=== PATIENT | female | born 1950 | race Caucasian/White ===

== ENCOUNTER 2016-11-27 11:39 | Inpatient (IN) | payer MEDICARE, OTHER ==
[2016-11-27 12:37] LABS: MPV 9.5 fL (7.4-10.4)
[2016-11-27 12:39] LABS: BLOOD UREA NITROGEN 17 MG/DL (7-17); CALC CORRECTED 9.3 MG/DL (8.4-10.2); CALCIUM 8.9 MG/DL (8.4-10.2); CALCULATED OSMOLALITY 272 MOs/Kg (270-290); CHLORIDE 98 mEq/L (98-107); GLUCOSE 240 MG/DL (70-99); SODIUM LEVEL 136 mEq/L (137-146); TOTAL PROTEIN 7.3 G/DL (6.3-8.2)
[2016-11-27 12:42] LABS: CA OXALATE 1+; LEUKOCYTES/URINE NEG (NEGATIVE); NITRITE/URINE NEG (NEGATIVE); URINE OCCULT BLOOD NEG (NEG/TRACE)
[2016-11-27 12:59] LABS: SEG NEUTROPHIL 69 % (45-76)
[2016-11-27] MEDS ORDERED: ONDANSETRON HCL 4 MG/2 ML VIAL IV ONE (13:34)
[2016-11-27] MEDS ORDERED: MORPHINE 4 MG/ML INJECTION IV ONE ×2 (13:34→16:13)
[2016-11-27] MEDS ORDERED: NS 2,000 ML IV ONE (13:34)
--- NOTE | 2016-11-27 14:48 | DIRPT ---
CLINICAL DATA: Low back pain since Sunday. EXAM: LUMBAR SPINE - COMPLETE 4+ VIEW COMPARISON: CT scan from 11/24/2016 and 03/14/2014 FINDINGS: Bones are diffusely demineralized. Mild superior endplate compression deformity at L5 is unchanged since recent CT scan. No worrisome lytic or sclerotic osseous abnormality. SI joints are normal. IMPRESSION: Diffuse bony demineralization with mild L5 superior endplate compression deformity stable since 03/14/2014. Electronically Signed By: Ascencion Thayer M.D. On: 11/27/2016 14:45
[2016-11-27 14:53] LABS: ALLEN'S TEST PASS; BEb -1.2 (+/- 2); TCO2 24.8 MMOL/L (23-27)
[2016-11-27 14:54] LABS: ABG Draw Site Right Radial
[2016-11-27] MEDS ORDERED: DIPHENHYDRAMINE 50 MG/ML VIAL IV ONE (14:57)
--- NOTE | 2016-11-27 15:12 | EDPRACDOC ---
- General Information Chief Complaint: Back Pain Stated Complaint: BACK PAIN/NAUSEA/HIGH BLOOD SUGAR Time Seen by Provider: 11/27/16 13:24 Information Source: Patient Mode Of Arrival: Car Home Medications: Home Medications Cholecalciferol (Vitamin D3) [Vitamin D3] 1,000 unit PO DAILY 01/05/15 Vitamin E 1,000 unit PO DAILY 01/05/15 Ascorbic Acid [Vitamin C] 1,000 mg PO DAILY 11/24/16 Calcium Carbonate [Calcium] 600 mg PO DAILY 11/24/16 Cyclobenzaprine HCl [Flexeril] 10 mg PO TID #21 tab 11/24/16 Metformin HCl 1,000 mg PO BID #60 tab 11/24/16 Nerium 1 tab PO DAILY 11/24/16 Ondansetron HCl [Zofran] 4 mg PO Q6H PRN #20 tab 11/24/16 Ubidecarenone [Co Q-10] 100 mg PO DAILY 11/24/16 Hydrocodone Bit/Acetaminophen [[place] 5-325 Tablet] 1 tab PO Q4H 11/27/16 Allergies/Adverse Reactions: Allergies Allergy/AdvReac Type Severity Reaction Status Date / Time No Known Allergies Allergy Verified 11/24/16 11:46 - History of Present Illness Onset: 1 WEEK HPI: PT PRESENTS WITH NAUSEA, BODY ACHES, BACK PAIN AND HYPERGLYCEMIA. PT STATES SHE WAS SEEN AT THIS FACILITY LAST WEEK AND DX WITH DIABETES. SINCE THAT TIME SHE STATES SHE HAS HAD NAUSEA, LOWER BACK PAIN, AND THAT HER SUGARS ARE REMAINING HIGH. PT WAS SEEN AT URGENT CARE THIS AM AND WAS SENT HERE FOR RE-EVALUATION. Pain Location: Reports: Lumbar Pain Radiates To: Reports: None Pain Caused By: Reports: Spontaneous Circumstances: Reports: Unknown Relevant History: Denies: Abdominal aneurysm, Arthiritis, Cancer, Chronic back pain, Gallbladder disease, Pancreatitis, Pyelonephritis, Urolithiasis, UTI, None , SC, O Currently ?: No Pain Severity: Reports: Moderate Pain Quality: Reports: Sharp, Stabbing Worsened By: Reports: Breathing, Movement, Twisting, Walking Associated Signs and Symptoms: Reports: Nausea ED Past Medical History - History Reviewed Yes Nurses notes reviewed and agree except as marked - Patient Medical History Psychological History: Denies: Depression Surgical History: Reports: Hysterectomy - Family Medical History Reports: Diabetes (FATHER) - Social Medical History Smoking Status: Never smoker EDM Review of Systems - Review of Systems ROS Negative Except as Marked: Yes All systems reviewed and were negative except as marked - Physical Exam Constitutional: Alert (PT APPEARS UNCOMFORTABLE) Oriented to: Time, Person, Place Last recorded Vital Signs: Last Vital Signs Temp 98.1 F 11/27/16 13:39 Pulse 91 11/27/16 14:59 Resp 18 11/27/16 14:59 BP 115/59 L 11/27/16 14:59 Pulse Ox 91 11/27/16 14:59 Oxygen Pulse Oxygen Saturation 91 O2 Device Nasal Cannula Oxygen Flow Rate 2 Fraction of Inspired Oxygen ( FIO2) - HEENT Head: Normal ( normocephalic) Eye Exam: Normal (PERRL, EOMI, Sclera white) Oropharynx: Normal (Pharynx:Moist without exudate,Gums-no swelling) Tympanic Membrane: Normal Nose: No Symptoms Reported (septum midline) Neck: Normal (FROM, trachea at midline) - Respiratory/Cardiovascular Respiratory: Normal - CTA (BBS clear to auscultation without adventitious sounds ) Cardiovascular: Normal (RRR without murmur, gallop or rub) - GI Auscultation: Normal (NABS) Palpation: Normal (Soft,No rebound or guarding, non distended) Tenderness: Non tender De Leon's Sign: Negative Rectal Exam: Deferred - Musculoskeletal Back: Normal (Non-Tender) Extremities: Normal (Normal tone, Pulses 2+ No cyanosis or edema, FROM) - Integumentary Skin: Normal, Warm, Dry Lymphatics: Normal (no adenopathy) - Neurologic Memory Impaired: Normal Motor Function: Normal (Normal tone, Pulses 2+ No cyanosis or edema, FROM) Cranial Nerve: Normal (CN II-X11 intact sensation, strength 5/5) Cerebellar: Normal Mood Description: Normal Perception: Normal ED Back Exam - Neurologic Motor Deficit: None Reflexes: Normal - Musculoskeletal Cervical: Normal Thoracic: Normal Lumbar: Tender, CVA Tenderness Midline: Normal Paraspinous: Tender Straight Leg Raise: Negative Pelvis: Normal - Differential Diagnosis Other - Results 11/27/16 12:17 11/27/16 12:17 WBC 5.0 xk/uL (3.8-10.8) 11/27/16 12:17 RBC 4.54 xM/uL (4.20-5.40) 11/27/16 12:17 Hgb 14.1 g/dL (12.0-16.0) 11/27/16 12:17 Hct 41.7 % (36-47) 11/27/16 12:17 MCV 92 fL (81-99) 11/27/16 12:17 MCH 31.0 pg (27-32) 11/27/16 12:17 MCHC 33.8 g/dl (33-36) 11/27/16 12:17 RDW 12.8 % (11.5-14.5) 11/27/16 12:17 Plt Count 185 xk/uL (130-400) 11/27/16 12:17 MPV 9.5 fL (7.4-10.4) 11/27/16 12:17 Neut % (Auto) Cancelled 11/27/16 12:17 Lymph % (Auto) Cancelled 11/27/16 12:17 [place] % (Auto) Cancelled 11/27/16 12:17 Eos % (Auto) Cancelled 11/27/16 12:17 Baso % (Auto) Cancelled 11/27/16 12:17 Absolute Neuts (auto) Cancelled 11/27/16 12:17 Absolute Lymphs (auto) Cancelled 11/27/16 12:17 Seg Neuts % (Manual) 69 % (45-76) 11/27/16 12:17 Band Neutrophils % 6 % (0-5) H 11/27/16 12:17 Lymphocytes % (Manual) 14 % (17-44) L 11/27/16 12:17 Monocytes % (Manual) 7 % (0-10) 11/27/16 12:17 Eosinophils % (Manual) 4 % (0-5) 11/27/16 12:17 Absolute Neutrophils 3.75 xk/uL (1.7-8.2) 11/27/16 12:17 Absolute Lymphocytes 0.70 xk/uL (0.65-4.75) 11/27/16 12:17 Atypical Lymphocytes Occ 11/27/16 12:17 Platelet Estimate Norm (NORMAL) 11/27/16 12:17 RBC Morphology Norm 11/27/16 12:17 Puncture Site Right radial 11/27/16 14:50 pH 7.390 pH UNITS (7.35-7.45) 01/02/17 14:50 pCO2 39.0 mmHg (35-45) 11/27/16 14:50 pO2 54.0 mmHg (80-100) L 11/27/16 14:50 HCO3 23.6 MMOL/L (22-26) 11/27/16 14:50 Total CO2 24.8 MMOL/L (23-27) 11/27/16 14:50 Base Excess -1.2 (+/- 2) 11/27/16 14:50 FiO2 % .21 11/27/16 14:50 Specimen Drawn By Sy 11/27/16 14:50 Sodium 136 mEq/L (137-146) L 11/27/16 12:17 Potassium 4.0 mEq/L (3.5-5.1) 11/27/16 12:17 Chloride 98 mEq/L (98-107) 11/27/16 12:17 Carbon Dioxide 22 mMOL/L (22-33) 11/27/16 12:17 Anion Gap 20 mEq/L (8-16) H 11/27/16 12:17 BUN 17 MG/DL (7-17) 11/27/16 12:17 Creatinine 0.70 MG/DL (0.52-1.04) 11/27/16 12:17 Estimated GFR (MDRD) > 60 mL/min (>=60) 11/27/16 12:17 Glucose 240 MG/DL (70-99) H 11/27/16 12:17 Calculated Osmolality 272 MOs/Kg (270-290) 11/27/16 12:17 Calcium 8.9 MG/DL (8.4-10.2) 11/27/16 12:17 Corrected Calcium 9.3 MG/DL (8.4-10.2) 11/27/16 12:17 Total Bilirubin 0.7 MG/DL (0.2-1.3) 11/27/16 12:17 AST 56 IU/L (14-36) H 11/27/16 12:17 ALT 94 IU/L (9-52) H 11/27/16 12:17 Alkaline Phosphatase 107 IU/L (55-165) 11/27/16 12:17 Total Protein 7.3 G/DL (6.3-8.2) 11/27/16 12:17 Albumin 3.6 G/DL (3.5-5.0) 11/27/16 12:17 Urine Color Chari 11/27/16 12:19 Urine Clarity Sl cldy 11/27/16 12:19 Urine pH 5.0 (5.0-8.0) 11/27/16 12:19 Ur Specific [place] 1.025 (1.003-1.035) 11/27/16 12:19 Urine Protein 2+ (NEG/TRACE) H 11/27/16 12:19 Urine Glucose (UA) 2+ (NEGATIVE) H 11/27/16 12:19 Urine Ketones 2+ (NEGATIVE) H 11/27/16 12:19 Urine Occult Blood Neg (NEG/TRACE) 11/27/16 12:19 Urine Nitrite Neg (NEGATIVE) 11/27/16 12:19 Urine Bilirubin Neg (NEGATIVE) 11/27/16 12:19 Urine Urobilinogen 2 MG/DL (0-1) H 11/27/16 12:19 Ur Leukocyte Esterase Neg (NEGATIVE) 11/27/16 12:19 Urine RBC 2-5 (0-5) 11/27/16 12:19 Urine WBC 5-10 (0-5) H 11/27/16 12:19 Ur Epithelial Cells 3+ 11/27/16 12:19 Calcium Oxalate Crystal 1+ 11/27/16 12:19 Urine Bacteria 1+ (NEG/FEW) H 11/27/16 12:19 Hyaline Casts 10-20 (0-2) H 11/27/16 12:19 Urine Mucus Mod (NEG/OCC) H 11/27/16 12:19 Lab Results 11/27/16 11/27/16 11/27/16 14:50 12:19 12:17 WBC 5.0 RBC 4.54 Hgb 14.1 Hct 41.7 MCV 92 MCH 31.0 MCHC 33.8 RDW 12.8 Plt Count 185 MPV 9.5 Neut % (Auto) Cancelled Lymph % (Auto) Cancelled [place] % (Auto) Cancelled Eos % (Auto) Cancelled Baso % (Auto) Cancelled Absolute Neuts (auto) Cancelled Absolute Lymphs (auto) Cancelled Seg Neuts % (Manual) 69 Band Neutrophils % 6 H Lymphocytes % (Manual) 14 L Monocytes % (Manual) 7 Eosinophils % (Manual) 4 Absolute Neutrophils 3.75 Absolute Lymphocytes 0.70 Atypical Lymphocytes Occ Platelet Estimate Norm RBC Morphology Norm Puncture Site Right radial pH 7.390 pCO2 39.0 pO2 54.0 L HCO3 23.6 Total CO2 24.8 Base Excess -1.2 FiO2 % .21 Specimen Drawn By Sy Sodium Potassium Chloride Carbon Dioxide Anion Gap BUN Creatinine Estimated GFR (MDRD) Glucose Calculated Osmolality Calcium Corrected Calcium Total Bilirubin AST ALT Alkaline Phosphatase Total Protein Albumin Urine Color Chari Urine Clarity Sl cldy Urine pH 5.0 Ur Specific [place] 1.025 Urine Protein 2+ H Urine Glucose (UA) 2+ H Urine Ketones 2+ H Urine Occult Blood Neg Urine Nitrite Neg Urine Bilirubin Neg Urine Urobilinogen 2 H Ur Leukocyte Esterase Neg Urine RBC 2-5 Urine WBC 5-10 H Ur Epithelial Cells 3+ Calcium Oxalate Crystal 1+ Urine Bacteria 1+ H Hyaline Casts 10-20 H Urine Mucus Mod H 11/27/16 12:17 WBC RBC Hgb Hct MCV MCH MCHC RDW Plt Count MPV Neut % (Auto) Lymph % (Auto) [place] % (Auto) Eos % (Auto) Baso % (Auto) Absolute Neuts (auto) Absolute Lymphs (auto) Seg Neuts % (Manual) Band Neutrophils % Lymphocytes % (Manual) Monocytes % (Manual) Eosinophils % (Manual) Absolute Neutrophils Absolute Lymphocytes Atypical Lymphocytes Platelet Estimate RBC Morphology Puncture Site pH pCO2 pO2 HCO3 Total CO2 Base Excess FiO2 % Specimen Drawn By Sodium 136 L Potassium 4.0 Chloride 98 Carbon Dioxide 22 Anion Gap 20 H BUN 17 Creatinine 0.70 Estimated GFR (MDRD) > 60 Glucose 240 H Calculated Osmolality 272 Calcium 8.9 Corrected Calcium 9.3 Total Bilirubin 0.7 AST 56 H ALT 94 H Alkaline Phosphatase 107 Total Protein 7.3 Albumin 3.6 Urine Color Urine Clarity Urine pH Ur Specific [place] Urine Protein Urine Glucose (UA) Urine Ketones Urine Occult Blood Urine Nitrite Urine Bilirubin Urine Urobilinogen Ur Leukocyte Esterase Urine RBC Urine WBC Ur Epithelial Cells Calcium Oxalate Crystal Urine Bacteria Hyaline Casts Urine Mucus - Departure Disposition: Admit IP To This Hospital Condition: Stable Final Diagnosis: Hypoxia, Dehydration Pneumonia Qualifiers: Pneumonia type: due to unspecified organism Laterality: unspecified laterality Lung location: unspecified part of lung Qualified Code(s): J18.9 - Pneumonia, unspecified organism Education/Counseling Given To: Patient Education/Counseling Given Regarding: Diagnosis, Treatment, Prognosis, Follow Up Referrals: Bernabe Garcia MD [Primary Care Provider] - One Week Decision to Admit Time: 18:21 Decision to admit date: 11/27/16 Decision to admit: from ED - Physician Consulted Hospitalist Time Called: 18:21 Provider Called: Tin Mcclelland Time Glued Wood Tester Returned Call: 18:22
--- NOTE | 2016-11-27 15:53 | DIRPT ---
CLINICAL DATA: Back pain with no injury beginning 11/19/2016. Low oxygen saturation. EXAM: CHEST 2 VIEW COMPARISON: 11/24/2016. FINDINGS: The heart size and mediastinal contours are within normal limits. Both lungs are clear. The visualized skeletal structures are unremarkable. Chronic interstitial prominence with hyperinflation suggesting COPD. Hiatal hernia. Thoracic spondylosis. Atherosclerosis. IMPRESSION: No active cardiopulmonary disease. Stable exam from priors. Electronically Signed By: Aydin Eden M.D. On: 11/27/2016 15:51
[2016-11-27] MEDS ORDERED: Pharmacy Review for Metformin - IV Contrast Given SCH (17:00)
[2016-11-27] MEDS ORDERED: HYDROmorphone 1 MG INJECTION IV ONE (17:17)
--- NOTE | 2016-11-27 18:04 | DIRPT ---
CLINICAL DATA: Hypoxia. Back pain and nausea for 1 week. EXAM: CT ANGIOGRAPHY CHEST WITH CONTRAST TECHNIQUE: Multidetector CT imaging of the chest was performed using the standard protocol during bolus administration of intravenous contrast. Multiplanar CT image reconstructions and MIPs were obtained to evaluate the vascular anatomy. CONTRAST: 80 cc Isovue 370 COMPARISON: 11/27/2016 chest radiograph FINDINGS: Mediastinum/Nodes: No filling defect is identified in the pulmonary arterial tree to suggest pulmonary embolus. Tortuosity and mild atherosclerosis of the thoracic aorta noted. Left anterior descending coronary artery atherosclerosis is present. Moderate-sized type 1 hiatal hernia. Small mediastinal and infrahilar lymph nodes are not pathologically enlarged by size criteria. Scattered symmetric small axillary lymph nodes are present. Lungs/Pleura: Mild biapical pleural parenchymal scarring. Subsegmental atelectasis in both lower lobes especially adjacent to the hiatal hernia. Mild cylindrical bronchiectasis in both lower lobes. Upper abdomen: Diffuse hepatic steatosis. Musculoskeletal: Mild thoracic spondylosis. Review of the MIP images confirms the above findings. IMPRESSION: 1. No filling defect is identified in the pulmonary arterial tree to suggest pulmonary embolus. No acute aortic findings. 2. Coronary artery atherosclerosis. 3. Moderate size type 1 hiatal hernia, with adjacent mild passive atelectasis in both lower lobes. 4. Mild cylindrical bronchiectasis in both lower lobes. 5. Diffuse hepatic steatosis. Electronically Signed By: Juan A Mooney M.D. On: 11/27/2016 18:01
[2016-11-27] MEDS ORDERED: CEFTRIAXONE 1 GM in D5W 100 ML IV ONE (18:20)
[2016-11-27] MEDS ORDERED: AZITHROMYCIN 500 MG in D5W 250 ML IV ONE (18:20)
[2016-11-27] MEDS ORDERED: ACETAMINOPHEN 325 MG/TAB TABLET PO PRN (18:52)
[2016-11-27] MEDS ORDERED: Albuterol/Ipratropium Neb 3 ML NEB NEB PRN (18:52)
[2016-11-27] MEDS ORDERED: ONDANSETRON HCL 4 MG/2 ML VIAL IV PRN (18:52)
[2016-11-27] MEDS ORDERED: DEXTROSE 25 GM/50 ML PFS IV PRN (18:52)
[2016-11-27] MEDS ORDERED: GLUCAGON 1 MG VIAL SQ PRN (18:52)
[2016-11-27] MEDS ORDERED: GLUCOSE (ORAL GEL) 15 GM TUBE PO PRN (18:52)
[2016-11-27 19:59] VITALS: BMI 28.8
[2016-11-27] MEDS ORDERED: AZITHROMYCIN 500 MG in D5W 250 ML IV SCH (20:00)
[2016-11-27] MEDS: HYDROCODONE 5 MG/ACETAMIN 325 MG TAB PO SCH (20:01)
--- NOTE | 2016-11-27 20:32 | HISTPHYS ---
- Chief Complaint Nausea, flushing, hypoxia - History of Present Illness This is a 58-year-old female who was recently diagnosed with type 2 diabetes, is being admitted to the hospital tonight due to hypoxia. She came to the emergency department because she has been feeling ill, she has been feeling weak , nauseous and vomiting, food has been tasting here to salty or to suite, she is unable to tolerate a diet due to this. She also started to develop some dry heaves and retching, as well as flushing and redness of the skin of her lower extremities. No fevers at home no chest pain or cough. Denies any subjective shortness of breath, but was found to be significantly hypoxic here in the emergency department. As such, hospitalist group was consulted further evaluation and potential admission to the hospital for inpatient management of her nausea, vomiting and hypoxia. - Medical History Psychological History: Denies: Depression - Surgical History Reports: Hysterectomy - Medictions/Allergies Allergies No Known Allergies Allergy (Verified 11/24/16 11:46) Home Medications Cholecalciferol (Vitamin D3) [Vitamin D3] 1,000 unit PO DAILY 01/05/15 Vitamin E 1,000 unit PO DAILY 01/05/15 Ascorbic Acid [Vitamin C] 1,000 mg PO DAILY 11/24/16 Calcium Carbonate [Calcium] 600 mg PO DAILY 11/24/16 Cyclobenzaprine HCl [Flexeril] 10 mg PO TID #21 tab 11/24/16 Metformin HCl 1,000 mg PO BID #60 tab 11/24/16 Nerium 1 tab PO DAILY 11/24/16 Ondansetron HCl [Zofran] 4 mg PO Q6H PRN #20 tab 11/24/16 Ubidecarenone [Co Q-10] 100 mg PO DAILY 11/24/16 Hydrocodone Bit/Acetaminophen [[place] 5-325 Tablet] 1 tab PO Q4H 11/27/16 - Family History Reports: Diabetes (FATHER) - Social History Travel Outside of [place] in the Last 3 Months?: No Smoking Status: Never smoker - Review of Systems Yes All systems reviewed and were negative except as marked - Physical Exam Vital Signs: Initial Vitals Temperature 97.8 F 11/27/16 12:01 Pulse Rate 105 11/27/16 12:01 Respiratory Rate 18 11/27/16 12:01 Blood Pressure 120/56 L 11/27/16 12:01 Pulse Oxygen Saturation 96 11/27/16 12:01 Constitutional: Distress Oriented to: Time, Person, Place Exam: Tired appearing, could historian. Resting comfortably on a stretcher in the emergency department with 2 family members at the bedside. - HEENT Head: Normal (normocephalic,atraumatic, trachea midline) Eye: Normal (EOMI, Sclera white) Oropharynx: Normal (moist) Nose: No Symptoms Reported (without discharge or bleeding) Respiratory: Normal - CTA (Clear to auscultation bilaterally, no wheezing,rales or rhonchi. No use of accessory muscles) Cardiovascular: Normal (RRR, no murmurs, rubs or gallops) - GI Palpation: Normal (soft, non distended and nontender) - Musculoskeletal Extremities: Normal (normal tone, no cyanosis or edema) - Integumentary Skin: Normal (no rashes or lesions) Integumentary Addtional Findings: She has confluent areas of redness with minimal amount of warmth in her bilateral lower extremities. It is blanching. - Neurologic Cranial Nerve: Normal (CN II-XII intact) Mood Description: Normal (Fully oriented and appropiate affect) - Focused CV Perfusion Exam Vital Signs: Last Vital Signs Temp 97.7 F 11/27/16 19:58 Pulse 97 11/27/16 19:58 Resp 18 11/27/16 19:58 BP 120/63 11/27/16 19:58 Pulse Ox 97 11/27/16 19:58 - Lab Results Laboratory Tests 11/27/16 11/27/16 11/27/16 12:17 12:17 12:17 WBC 5.0 Hgb 14.1 Hct 41.7 Plt Count 185 pH pCO2 pO2 Potassium 4.0 BUN 17 Creatinine 0.70 Glucose 240 H Hemoglobin A1c 11.1 H AST 56 H ALT 94 H 11/27/16 14:50 WBC Hgb Hct Plt Count pH 7.390 pCO2 39.0 pO2 54.0 L Potassium BUN Creatinine Glucose Hemoglobin A1c AST ALT - Diagnostic Findings CT of the chest with contrast: 1. No filling defect is identified in the pulmonary arterial tree to suggest pulmonary embolus. No acute aortic findings. 2. Coronary artery atherosclerosis. 3. Moderate size type 1 hiatal hernia, with adjacent mild passive atelectasis in both lower lobes. 4. Mild cylindrical bronchiectasis in both lower lobes. 5. Diffuse hepatic steatosis. - Assessment (1) Hypoxia R09.02 - HYPOXEMIA Acute Peripheral O2 saturations are normal, however an ABG was done and showed significant hypoxia. As such, which will be placed on supplemental oxygen as needed, it is possible that she may have developed a slight pneumonia or pneumonitis related to her recurrent nausea and vomiting in the last couple of days. Will admit to the hospital, provide supplemental oxygen as needed and treat empirically with IV Levaquin for potential aspiration pneumonia. (2) Flushing R23.2 - FLUSHING Acute Possibly reaction to the metformin. Will discontinue this medication for now, in addition to the fact that she had IV contrast tonight. Unclear to me whether she is intolerant of this medication. She claims that she had some nausea and abdominal discomfort prior to initiation of the metformin. (3) Nausea & vomiting R11.2 - NAUSEA WITH VOMITING, UNSPECIFIED Acute Etiology is unclear, could be reaction to her metformin. Will hold this medication, will treat symptomatically. (4) Back pain M54.9 - DORSALGIA, UNSPECIFIED Acute Qualifiers: Back pain location: thoracic back pain Chronicity: acute Back pain laterality: bilateral Qualified Code(s): M54.6 - Pain in thoracic spine Etiology is unclear, started recently but prior to her metformin use according to the patient. Lipase is normal. Recommend physical therapy. Case Care Discussed with: Patient, Family, Nursing Staff Total Time: 49
[2016-11-27] MEDS: Levofloxacin 750 mg/150 ml D5W 750 MG/150 ML RTU IV SCH (20:58)
[2016-11-27] MEDS: CYCLOBENZAPRINE 10 MG TAB PO SCH (21:00)
[2016-11-27] MEDS: REGULAR INSULIN 100 UNITS/ML - 3 ML VIAL SQ SCH (21:03)
[2016-11-27] MEDS: ENOXAPARIN 40 MG/0.4 ML PFS SQ SCH (21:07)
[2016-11-28] MEDS: HYDROCODONE 5 MG/ACETAMIN 325 MG TAB PO SCH ×6 (01:42→21:53)
[2016-11-28] MEDS: REGULAR INSULIN 100 UNITS/ML - 3 ML VIAL SQ SCH ×4 (05:41→21:53)
[2016-11-28] MEDS: CYCLOBENZAPRINE 10 MG TAB PO SCH ×3 (05:41→21:53)
[2016-11-28 07:08] LABS: MPV 8.9 fL (7.4-10.4)
[2016-11-28 07:27] LABS: BLOOD UREA NITROGEN 13 MG/DL (7-17); CALCULATED OSMOLALITY 263 MOs/Kg (270-290); CHLORIDE 99 mEq/L (98-107); GLUCOSE 148 MG/DL (70-99); SODIUM LEVEL 135 mEq/L (137-146)
[2016-11-28] MEDS ORDERED: CALCIUM CARBONATE 600 MG PO SCH (09:00)
[2016-11-28] MEDS ORDERED: Non-Formulary Medication ITEM (Ascorbic Acid [Vitamin C] 1,000 MG) PO SCH (09:00)
[2016-11-28] MEDS ORDERED: VITAMIN E 1000 UNIT PO SCH (09:00)
[2016-11-28] MEDS ORDERED: UBIDECARENONE 100 MG PO SCH (09:00)
[2016-11-28] MEDS ORDERED: Non-Formulary Medication ITEM (Cholecalciferol (Vitamin D3) [Vitamin D3] 1,000 UNIT) PO SCH (09:00)
--- NOTE | 2016-11-28 09:18 | DIRPT ---
CLINICAL DATA: Shortness of breath, back pain, and nausea as for the past 10 days EXAM: CHEST 2 VIEW COMPARISON: CT scan chest of November 27, 2016. FINDINGS: The lungs are adequately inflated. The interstitial markings are coarse especially in the lower lobes where there are atelectatic changes as well. The heart is top-normal in size. The pulmonary vascularity is not engorged. The mediastinum is normal in width. The bony thorax exhibits no acute abnormality. There is a small hiatal hernia. IMPRESSION: COPD with chronic interstitial changes. There may be superimposed subsegmental atelectasis at both lung bases. There is a small hiatal hernia. Electronically Signed By: Bassam Culp M.D. On: 11/28/2016 09:15
[2016-11-28] MEDS: VITAMIN E 400 UNITS/CAP CAP PO SCH (11:28)
[2016-11-28] MEDS: CALCIUM CARBONATE 500 MG TAB PO SCH (11:28)
[2016-11-28] MEDS: CHOLECALCIFEROL 1000 UNITS TAB PO SCH (11:28)
[2016-11-28] MEDS: ASCORBIC ACID 500 MG TAB PO SCH (11:28)
--- NOTE | 2016-11-28 13:43 | GENMEDPROG ---
Chief Complaint: DM-2, N&V, HYPOXIA, A BRONCHITIS, ABDOMINAL PAIN (EPIGASTRIC) Subjective Note: PATIENT REPORTS THAT METFORMIN CAUSED RASH Notes Reviewed: Yes Events from last night noted and discussed with Clinical Staff Current Medication List: Reviewed Currently: Denies: Cough, PATINO, SOB, Tobacco Use/Hx, Alcohol Hx DVT Prophylaxis: Yes - Physical Examination Vital Signs and I&O: Last Vital Signs Temp 99.1 F 11/28/16 13:40 Pulse 96 11/28/16 13:40 Resp 18 11/28/16 13:40 BP 101/49 L 11/28/16 13:40 Pulse Ox 97 11/28/16 13:40 Oxygen Pulse Oxygen Saturation 97 O2 Device Nasal Cannula Oxygen Flow Rate 2 Fraction of Inspired Oxygen ( FIO2) Intake & Output 11/25/16 11/26/16 11/27/16 11/28/16 23:59 23:59 23:59 23:59 Intake Total 2049 893 Output Total 600 Balance 2049 293 Patient's weight 71.35 kg 71.35 kg General: Alert, Oriented x3, Cooperative, Mild distress, Obese HEENT: Normal, PERRLA, EOMI, Anicteric Sclera, Mucous membr. moist/pink Neck: Non-tender, Full range of motion, Normal Trachea alignment, Normal inspection, No Masses palpable Lymphatics: Normal Respiratory: Normal - CTA (Clear to auscultation bilaterally, no wheezing,rales or rhonchi. No use of accessory muscles) Cardiovascular: Regular rate, Normal S1, Normal S2 GI: Normal bowel sounds, Soft, Non tender, No masses, Obese Extremities/Musculoskeletal: Normal pulses. negative: Edema Skin: Warm,Dry and Intact, No rashes Neurological: Normal Steady Gait, Normal speech, Strength at 5/5 X4 ext, Normal tone, Cranial nerves 3-12 NL Psych/Mental Status: Appropriate, Normal Affect, Cooperative Lab/DI/Studies Reviewed: Laboratory Tests 11/28/16 11/28/16 11/28/16 05:13 06:48 06:48 WBC 3.7 L Hgb 12.2 D Hct 36.0 Plt Count 181 Sodium 135 L Potassium 3.8 Chloride 99 Carbon Dioxide 25 Anion Gap 15 BUN 13 Creatinine 0.60 Estimated GFR (MDRD) > 60 Glucose 148 H POC Capillary Glucose 134 H Calculated Osmolality 263 L Calcium 8.0 L 11/28/16 11/28/16 11:08 16:16 WBC Hgb Hct Plt Count Sodium Potassium Chloride Carbon Dioxide Anion Gap BUN Creatinine Estimated GFR (MDRD) Glucose POC Capillary Glucose 260 H 167 H Calculated Osmolality Calcium - Assessment (1) Diabetes mellitus type 2 in obese Acute E11.9 - TYPE 2 DIABETES MELLITUS WITHOUT COMPLICATIONS; E66.9 - OBESITY , UNSPECIFIED Comment/Plan: New onset, patient is still not taking any treatment, states metformin caused a rash, so she stopped it. Discussed proper diabetic diet and need for better control. (2) Dehydration Acute E86.0 - DEHYDRATION Comment/Plan: IV fluids for hydration. (3) Hypoxia Acute R09.02 - HYPOXEMIA Comment/Plan: Peripheral O2 saturations are normal , however an ABG was done and showed significant hypoxia. As such, which will be placed on supplemental oxygen as needed, it is possible that she may have developed a slight pneumonia or pneumonitis related to her recurrent nausea and vomiting in the last couple of days. Will provide supplemental oxygen as needed and treat empirically with IV Levaquin for potential aspiration pneumonia. (4) Nausea & vomiting Acute R11.2 - NAUSEA WITH VOMITING, UNSPECIFIED Qualifiers: Vomiting Intractability: non-intractable Comment/Plan: Etiology is unclear, could be reaction to her metformin. Will hold this medication, will treat symptomatically. (5) Back pain Acute M54.9 - DORSALGIA, UNSPECIFIED Qualifiers: Back pain location: thoracic back pain Chronicity: acute Back pain laterality: bilateral Qualified Code(s): M54.6 - Pain in thoracic spine Comment/Plan: Etiology is unclear, started recently -but prior to her metformin according to the patient. Lipase is normal. Likely due to increased inflammatory response from excess insulin levels. Recommend physical therapy. Use Vicodin PRN for pain. Case Care Discussed with: Patient, Family, Nursing Staff Education/Counseling Given To: Patient, Family Member Education/Counseling Given Regarding: Diagnosis, Treatment, Prognosis Code: 28535 (12+)
[2016-11-28] MEDS ORDERED: SITAGLIPTIN 50 MG TAB PO ONE (15:41)
[2016-11-28] MEDS: PANTOPRAZOLE 40 MG VIAL IV SCH (17:06)
[2016-11-28] MEDS: ENOXAPARIN 40 MG/0.4 ML PFS SQ SCH (17:07)
[2016-11-28] MEDS ORDERED: CEFTRIAXONE 1 GM in D5W 100 ML IV SCH (18:00)
[2016-11-28] MEDS: Levofloxacin 750 mg/150 ml D5W 750 MG/150 ML RTU IV SCH (19:49)
[2016-11-28] MEDS ORDERED: HYDROCODONE 10 MG/ACETAMIN 325 MG TAB PO PRN (20:40)
[2016-11-29] MEDS: HYDROCODONE 5 MG/ACETAMIN 325 MG TAB PO SCH ×6 (03:30→22:50)
[2016-11-29 05:27] LABS: AUTOMATED BASOPHIL 2.1 % (0-2); AUTOMATED EOSINOPHIL 5.6 % (0-5); AUTOMATED LYMPH 23.7 % (17-44); AUTOMATED MONOCYTE 9.1 % (3-10); AUTOMATED NEUTROPHIL 59.5 % (45-76); MPV 10.2 fL (7.4-10.4)
[2016-11-29 05:36] LABS: BLOOD UREA NITROGEN 10 MG/DL (7-17); CALCIUM 8.4 MG/DL (8.4-10.2); CALCULATED OSMOLALITY 261 MOs/Kg (270-290); CHLORIDE 98 mEq/L (98-107); CRP-QUANTITATIVE 55.5 mg/L (<10.0); GLUCOSE 133 MG/DL (70-99); SODIUM LEVEL 135 mEq/L (137-146)
[2016-11-29] MEDS: PANTOPRAZOLE 40 MG VIAL IV SCH ×2 (05:48→17:03)
[2016-11-29] MEDS: REGULAR INSULIN 100 UNITS/ML - 3 ML VIAL SQ SCH ×4 (05:48→21:49)
[2016-11-29] MEDS: SITAGLIPTIN 50 MG TAB PO SCH (05:49)
[2016-11-29] MEDS: CYCLOBENZAPRINE 10 MG TAB PO SCH ×3 (05:49→20:02)
--- NOTE | 2016-11-29 08:28 | DIRPT ---
CLINICAL DATA: Respiratory failure. EXAM: CHEST - 2 VIEW COMPARISON: 11/28/2016 FINDINGS: Increased opacity in the right lower lobe is felt to be a combination of probable atelectasis and infiltrate. Chronic lung disease is stable. No edema, pleural fluid or pneumothorax identified. There is a moderate-sized hiatal hernia. The heart size and mediastinal contours are normal. Bony thorax is unremarkable. IMPRESSION: Increased opacity in the right lower lobe likely representing combination of atelectasis and infiltrate. Moderate-sized hiatal hernia. Electronically Signed By: Gael Bolivar M.D. On: 11/29/2016 08:25
--- NOTE | 2016-11-29 08:40 | GENMEDPROG ---
Chief Complaint: RLL pneumonia, DM-2, N&V, hypoxia, low back pain Currently: Denies: Cough, PATINO, SOB, Tobacco Use/Hx, Alcohol Hx DVT Prophylaxis: Yes - Physical Examination Vital Signs and I&O: Last Vital Signs Temp 98.2 F 11/29/16 06:29 Pulse 88 11/29/16 06:29 Resp 18 11/29/16 06:29 BP 111/59 L 11/29/16 06:29 Pulse Ox 92 11/29/16 06:29 Oxygen Pulse Oxygen Saturation 92 O2 Device Nasal Cannula Oxygen Flow Rate 1 Fraction of Inspired Oxygen ( FIO2) Intake & Output 11/26/16 11/27/16 11/28/16 11/29/16 23:59 23:59 23:59 23:59 Intake Total 2049 1597 200 Output Total 600 750 Balance 2049 997 -550 Patient's weight 71.35 kg 71.35 kg 71.758 kg General: Alert, Oriented x3, Cooperative, Mild distress, Obese HEENT: Normal, PERRLA, EOMI, Anicteric Sclera, Mucous membr. moist/pink Neck: Non-tender, Full range of motion, Normal Trachea alignment, Normal inspection, No Masses palpable Lymphatics: Normal Respiratory: Normal - CTA (Clear to auscultation bilaterally, no wheezing,rales or rhonchi. No use of accessory muscles) Cardiovascular: Regular rate, Normal S1, Normal S2 GI: Normal bowel sounds, Soft, Non tender, No masses, Obese Extremities/Musculoskeletal: Normal pulses. negative: Edema Skin: Warm,Dry and Intact, No rashes Neurological: Normal Steady Gait, Normal speech, Strength at 5/5 X4 ext, Normal tone, Cranial nerves 3-12 NL Psych/Mental Status: Appropriate, Normal Affect, Cooperative Lab/DI/Studies Reviewed: Laboratory Tests 11/29/16 11/29/16 11/29/16 04:10 05:00 05:00 WBC 3.6 L RBC 3.91 L Hgb 12.1 Hct 36.2 Plt Count 143 Neut % (Auto) 59.5 Lymph % (Auto) 23.7 [place] % (Auto) 9.1 Eos % (Auto) 5.6 H Sodium Potassium Chloride Carbon Dioxide Anion Gap BUN Creatinine Estimated GFR (MDRD) Glucose POC Capillary Glucose 118 H Calculated Osmolality Calcium Magnesium 1.40 L 11/29/16 05:00 WBC RBC Hgb Hct Plt Count Neut % (Auto) Lymph % (Auto) [place] % (Auto) Eos % (Auto) Sodium 135 L Potassium 3.6 Chloride 98 Carbon Dioxide 27 Anion Gap 14 BUN 10 Creatinine 0.60 Estimated GFR (MDRD) > 60 Glucose 133 H POC Capillary Glucose Calculated Osmolality 261 L Calcium 8.4 Magnesium - Assessment (1) Diabetes mellitus type 2 in obese Acute E11.9 - TYPE 2 DIABETES MELLITUS WITHOUT COMPLICATIONS; E66.9 - OBESITY , UNSPECIFIED Comment/Plan: New onset, patient is still not taking any treatment, states metformin caused a rash, so she stopped it. Discussed proper diabetic diet and need for better control. ErJ2v=96.1. Patient started on Januvia. (2) Dehydration Acute E86.0 - DEHYDRATION Comment/Plan: IV fluids for hydration. (3) Hypoxia Acute R09.02 - HYPOXEMIA Comment/Plan: Peripheral O2 saturations are normal , however an ABG was done and showed significant hypoxia. As such, which will be placed on supplemental oxygen as needed, it is possible that she may have developed a slight pneumonia or pneumonitis related to her recurrent nausea and vomiting in the last couple of days. Will provide supplemental oxygen as needed and treat empirically with IV Levaquin for potential aspiration pneumonia. (4) Nausea & vomiting Acute R11.2 - NAUSEA WITH VOMITING, UNSPECIFIED Qualifiers: Vomiting Intractability: non-intractable Comment/Plan: Etiology is unclear, could be reaction to her metformin. Will hold this medication, will treat symptomatically. (5) Back pain Acute M54.9 - DORSALGIA, UNSPECIFIED Qualifiers: Back pain location: thoracic back pain Chronicity: acute Back pain laterality: bilateral Qualified Code(s): M54.6 - Pain in thoracic spine Comment/Plan: Etiology is unclear, started recently -but prior to her metformin according to the patient. Lipase is normal. Likely due to increased inflammatory response from excess insulin levels. Recommend physical therapy. Use Vicodin PRN for pain. (6) Pneumonia Acute J18.9 - PNEUMONIA, UNSPECIFIED ORGANISM Qualifiers: Pneumonia type: aspiration pneumonia Laterality: right Lung location: lower lobe of lung Qualified Code(s): J18.9 - Pneumonia, unspecified organism Comment/Plan: CXR reveals RLL infiltrate, c/w aspiration pneumonia. This explains her hypoxia. Her back pain is in the lower lumbar curve however, and is more likely related to overall inflammation from uncontrolled diabetes. Continue IV Levaquin for now.
[2016-11-29] MEDS: ASCORBIC ACID 500 MG TAB PO SCH (11:37)
[2016-11-29] MEDS: VITAMIN E 400 UNITS/CAP CAP PO SCH (11:37)
[2016-11-29] MEDS: CALCIUM CARBONATE 500 MG TAB PO SCH (11:37)
[2016-11-29] MEDS: CHOLECALCIFEROL 1000 UNITS TAB PO SCH (11:38)
[2016-11-29] MEDS ORDERED: MetFORMIN 1000 MG IMMED REL TAB PO SCH (17:00)
[2016-11-29] MEDS: ENOXAPARIN 40 MG/0.4 ML PFS SQ SCH (17:03)
[2016-11-29] MEDS: Levofloxacin 750 mg/150 ml D5W 750 MG/150 ML RTU IV SCH (20:01)
[2016-11-30] MEDS: HYDROCODONE 5 MG/ACETAMIN 325 MG TAB PO SCH ×3 (02:14→10:38)
[2016-11-30] MEDS: PANTOPRAZOLE 40 MG VIAL IV SCH (05:04)
[2016-11-30] MEDS: CYCLOBENZAPRINE 10 MG TAB PO SCH (06:06)
[2016-11-30] MEDS: SITAGLIPTIN 50 MG TAB PO SCH (06:10)
[2016-11-30] MEDS: REGULAR INSULIN 100 UNITS/ML - 3 ML VIAL SQ SCH (06:10)
[2016-11-30 06:38] VITALS: BP 138/66; PULSE 90; TEMP 97.8
--- NOTE | 2016-11-30 08:32 | PCM.DCS92 ---
- Final/Secondary Discharge Diagnosis (1) Pneumonia Acute J18.9 - PNEUMONIA, UNSPECIFIED ORGANISM Present on Admission: Yes aspiration pneumonia right lower lobe of lung Comment: CXR reveals RLL infiltrate, c/w aspiration pneumonia. This explains her hypoxia. Her back pain is in the lower lumbar curve however, and is more likely related to overall inflammation from uncontrolled diabetes. Continue IV Levaquin for now. (2) Hypoxia Acute R09.02 - HYPOXEMIA Present on Admission: Yes Comment: Peripheral O2 saturations are normal, however an ABG was done which showed significant hypoxia at the time of admission. As such, which will be placed on supplemental oxygen as needed, she was suspected of having pneumonia or pneumonitis related to her recurrent nausea and vomiting. She was provided supplemental oxygen as needed and treated empirically with IV Levaquin for potential aspiration pneumonia. In fact, repeat CXR did confirm the presence of aspiration pneumonia. (3) Diabetes mellitus type 2 in obese Acute E11.9 - TYPE 2 DIABETES MELLITUS WITHOUT COMPLICATIONS; E66.9 - OBESITY , UNSPECIFIED Present on Admission: Yes Comment: New onset, patient is still not taking any treatment, states metformin caused a rash, so she stopped it. Discussed proper diabetic diet and need for better control. EeV2z=45.1. Patient started on Januvia. (4) Nausea & vomiting Acute R11.2 - NAUSEA WITH VOMITING, UNSPECIFIED Present on Admission: Yes non-intractable Comment: Etiology is unclear, could be reaction to her metformin. Will hold this medication, will treat symptomatically. (5) Dehydration Acute E86.0 - DEHYDRATION Present on Admission: Yes Comment: IV fluids for hydration. (6) Back pain Acute M54.9 - DORSALGIA, UNSPECIFIED Present on Admission: Yes thoracic back pain acute bilateral M54.6 - Pain in thoracic spine Comment: Etiology is unclear, started recently -but prior to her metformin according to the patient. Lipase is normal. Likely due to increased inflammatory response from excess insulin levels. Recommend physical therapy. Use Vicodin PRN for pain. Discharge Disposition: Home Discharge Condition: Improved Cognitive Discharge Status: Unimpaired Fuctional Discharge Status: Independent Physician Follow up/Referrals: Bernabe Garcia MD [Primary Care Provider] - One Week New Prescriptions: Levofloxacin [Levaquin] 750 mg PO DAILY #7 tablet Sitagliptin Phosphate [Januvia] 100 mg PO DAILY@0700 #30 tab Discharge Home Medication List Cholecalciferol (Vitamin D3) [Vitamin D3] 1,000 unit PO DAILY 01/05/15 [History Confirmed 11/27/16 Last Taken 11/27/16] Vitamin E 1,000 unit PO DAILY 01/05/15 [History Confirmed 11/27/16 Last Taken ] Ascorbic Acid [Vitamin C] 1,000 mg PO DAILY 11/24/16 [History Confirmed Last Taken 11/27/16] Calcium Carbonate [Calcium] 600 mg PO DAILY 11/24/16 [History Confirmed Last Taken 11/27/16] Cyclobenzaprine HCl [Flexeril] 10 mg PO TID #21 tab 11/24/16 [Rx Confirmed 11/27 Last Taken 11/27/16] Nerium 1 applic TOP DAILY 11/24/16 [History Confirmed 11/28/16 Last Taken ] Ondansetron HCl [Zofran] 4 mg PO Q6H PRN #20 tab 11/24/16 [Rx Confirmed Last Taken Unknown] Ubidecarenone [Co Q-10] 100 mg PO DAILY 11/24/16 [History Confirmed 11/27/16 Last Taken 11/27/16] Hydrocodone Bit/Acetaminophen [[place] 5-325 Tablet] 1 tab PO Q4H 11/27/16 [ History Confirmed 11/27/16 Last Taken 11/27/16] Levofloxacin [Levaquin] 750 mg PO DAILY #7 tablet 11/30/16 [Rx Last Taken Unknown] Sitagliptin Phosphate [Januvia] 100 mg PO DAILY@0700 #30 tab 11/30/16 [Rx Last Taken Unknown] O2 Device: Room Air Diet at Discharge: Heart Healthy, Diabetic, 1800 Calorie Activity: No Restrictions Call Office For: Worsening Symptoms Discontinue use of:: Alcohol, All Types of Tobacco - DC Summary Notes Hospital Course Note:: Discharge summary on patient named MARICRUZ MART admitted to [facility] on 11/27/16 by Tin Mcclelland MD. Date of discharge is []. This is a 58-year-old female who was recently diagnosed with type 2 diabetes, is being admitted to the hospital tonight due to hypoxia. She came to the emergency department because she has been feeling ill, she has been feeling weak, nauseous and vomiting, food has been tasting here to salty or to suite, she is unable to tolerate a diet due to this. She also started to develop some dry heaves and retching, as well as flushing and redness of the skin of her lower extremities. No fevers at home no chest pain or cough. Denies any subjective shortness of breath, but was found to be significantly hypoxic here in the emergency department. As such, hospitalist group was consulted further evaluation and potential admission to the hospital for inpatient management of her nausea, vomiting and hypoxia. Peripheral O2 saturations are normal, however an ABG was done which showed significant hypoxia at the time of admission. As such, she was suspected of having pneumonia or pneumonitis related to her recurrent nausea and vomiting. She was provided supplemental oxygen as needed and treated empirically with IV Levaquin for potential aspiration pneumonia. In fact, repeat CXR did confirm the presence of aspiration pneumonia. This explains her hypoxia. Her back pain is in the lower lumbar curve however, and is more likely related to overall inflammation from uncontrolled diabetes. Continue PO Levaquin for 1 week. She is currently tolerating room air. Her metformin was discontinued due to a reported rash, and she was given a trial of Januvia instead. She seems to be tolerating this better. She will need additional education regarding diabetes after discharge. She may be discharged home today and will follow-up with Dr. Garcia in 1 week. Total Time: 35 min Code: 74864 (>30min.) - Physical Exam Vital Signs: Last Vital Signs Temp 97.8 F 11/30/16 06:00 Pulse 90 11/30/16 06:00 Resp 20 11/30/16 06:00 BP 138/66 11/30/16 06:00 Pulse Ox 94 11/30/16 06:00 Oxygen Pulse Oxygen Saturation 94 O2 Device Room Air Oxygen Flow Rate 1 Fraction of Inspired Oxygen ( FIO2) Constitutional: No apparent distress, Alert Oriented to: Time, Person, Place - HEENT Head: Normal (normocephalic,atraumatic, trachea midline) Eye: Normal (EOMI, Sclera white) Oropharynx: Normal (moist) Tympanic Membrane: Normal ENT EAC: Normal Nose: No Symptoms Reported (without discharge or bleeding) - Respiratory/Cardiovascular Respiratory: Normal - CTA (Clear to auscultation bilaterally, no wheezing,rales or rhonchi. No use of accessory muscles) Cardiovascular: Normal - GI Auscultation: Normal Palpation: Normal (soft, non distended and nontender) Tenderness: Non tender Rectal Exam: Deferred - Musculoskeletal Back: Normal Extremities: Normal (normal tone, no cyanosis or edema) - Integumentary Skin: Warm, Dry Lymphatics: Normal - Neurologic Memory Impaired: Normal Motor Function: Normal Cranial Nerve: Normal Cerebellar: Normal Mood Description: Normal (Fully oriented and appropiate affect) Thought: Coherent Perception: Normal
== END 2016-11-30 10:36 | disposition home or self-care (01) | DRG 179 ==
LOC: ED 11:39 → MPS3 18:52
PROVIDERS: ADMIT Internal Medicine; ATTEND Family Medicine
PROC: 039B3ZZ Drainage of Right Radial Artery, Percutaneous Approach (ICD-10-PCS; principal; 2016-11-27)
DX: J69.0 Pneumonitis due to inhalation of food and vomit (principal); E11.9 Type 2 diabetes mellitus without complications; R09.02 Hypoxemia; E66.9 Obesity, unspecified; R11.2 Nausea with vomiting, unspecified; E86.0 Dehydration; M54.6 Pain in thoracic spine; Z79.899 Other long term (current) drug therapy; T38.3X5A Adverse effect of insulin and oral hypoglycemic [antidiabetic] drugs, initial encounter; R23.2 Flushing; Z68.28 Body mass index [BMI] 28.0-28.9, adult
CPT/HCPCS: 36415; 36600; 71020; 71275; 72110; 80048; 80053; 81001; 82043; 82803; 82962; 83036; 83525; 83690; 83735; 83880; 85007; 85025; 85027; 86140; 87040; 96361; 96365; 96372; 96375; 96376; 97161; 98960; 99285; A9698; G0237; J0696; J1170; J1200; J1650; J1956; J2270; J2405; J3490; J7060; S0164